=== PATIENT | male | born 1985 | race Two or more races ===

== ENCOUNTER 2019-07-25 09:11 | Emergency (ER) | payer SELFPAY ==
[2019-07-25] MEDS ORDERED: Sodium Chloride 0.9% 10 ML Syringe FLUSH PRN ×2 (10:44→10:48)
--- NOTE | 2019-07-25 10:45 | EDM.PDOC ---
ED HPI GENERAL MEDICAL PROBLEM - General Chief Complaint: Back Pain or Injury Stated Complaint: BACK/LEFT SIDE PAIN Time Seen by Provider: 07/25/19 09:32 Source of Information: Reports: Patient History Limitations: Reports: No Limitations - History of Present Illness INITIAL COMMENTS - FREE TEXT/NARRATIVE: The patient presents with left upper lateral back pain This has been going on for over a week. He had a cough, fever, chills and congestion for over a week. He did see Dr Parra in the clinic and she did x-rays and said he had pleurisy. He has no fever now. He has no shortness of breath. He has no pain when laying down. He hurts more when taking a deep breath or cough. Onset: Gradual Duration: Week(s): Location: Reports: Back (left upper) Quality: Reports: Sharp Severity: Moderate Improves with: Reports: None Worsens with: Reports: None Associated Symptoms: Reports: Cough, Fever/Chills. Denies: Chest Pain, Headaches, Nausea/Vomiting, Shortness of Breath Treatments SAND BLASTER: Reports: NSAIDS Left Upper Posterior Back Pain Score (Numeric/FACES): 8 - Related Data Allergies Allergy/AdvReac Type Severity Reaction Status Date / Time No Known Allergies Allergy Verified 07/25/19 09:48 Home Meds: Home Meds Ibuprofen 800 mg PO Q8HR PRN 07/25/19 [History] predniSONE [Prednisone] 40 mg PO DAILY #10 tablet 07/25/19 [Rx] Past Medical History HEENT History: Reports: Impaired Vision Cardiovascular History: Reports: Heart Murmur - Past Surgical History HEENT Surgical History: Reports: None Cardiovascular Surgical History: Reports: None GI Surgical History: Reports: Appendectomy Social & Family History - Tobacco Use Smoking Status *Q: Never Smoker - Caffeine Use Caffeine Use: Reports: Coffee - Recreational Drug Use Recreational Drug Use: No ED ROS GENERAL - Review of Systems Review Of Systems: See Below Constitutional: Reports: No Symptoms HEENT: Reports: No Symptoms Respiratory: Reports: Cough. Denies: Shortness of Breath Cardiovascular: Reports: No Symptoms Endocrine: Reports: No Symptoms GI/Abdominal: Reports: No Symptoms : Reports: No Symptoms Musculoskeletal: Reports: Back Pain (Left upper) ED EXAM,LOWER BACK PAIN/INJURY - Physical Exam Exam: See Below Exam Limited By: No Limitations General Appearance: Alert, No Apparent Distress Ears: Normal External Exam Nose: Normal Inspection Head: Atraumatic, Normocephalic Neck: Normal Inspection Respiratory/Chest: No Respiratory Distress, Lungs Clear, Normal Breath Sounds Cardiovascular: Regular Rate, Rhythm, No Edema, No Murmur GI/Abdominal: Soft, Non-Tender, No Organomegaly, No Mass Back Exam: Other (no pain upon palpation to the left back but he is uncomfortable standing when I examined him. I could not reproduce the pain with palpation.) Course - Vital Signs Last Recorded V/S: Last Vital Signs Temp 97.2 F 07/25/19 09:28 Pulse 57 L 07/25/19 09:28 Resp 18 07/25/19 09:28 BP 107/73 07/25/19 09:28 Pulse Ox 99 07/25/19 09:28 - Orders/Labs/Meds Orders: Active Orders 24 hr Category Date Time Status Cardiac Monitoring [RC] . DIRECTED Care 07/25/19 09:41 Active Peripheral IV Care [RC] . DIRECTED Care 07/25/19 10:44 Active Chest 2V [CR] Stat Exams 07/25/19 09:41 Taken Sodium Chloride 0.9% [Normal Saline] 100 ml Med 07/25/19 11:00 Active IV ASDIRECTED Sodium Chloride 0.9% [Saline Flush] Med 07/25/19 10:44 Active 10 ml FLUSH ASDIRECTED PRN Sodium Chloride 0.9% [Saline Flush] Med 07/25/19 10:48 Active 10 ml FLUSH ONETIME PRN Peripheral IV Insertion Adult [OM.PC] Routine Oth 07/25/19 10:44 Ordered Medication Orders Sodium Chloride (Normal Saline) 100 mls @ 75 mls/hr IV ASDIRECTED MANUELITO Last Admin: 07/25/19 11:02 Dose: 75 mls/hr Sodium Chloride (Saline Flush) 10 ml FLUSH ASDIRECTED PRN PRN Reason: Keep Vein Open Last Admin: 07/25/19 10:49 Dose: 10 ml Sodium Chloride (Saline Flush) 10 ml FLUSH ONETIME PRN PRN Reason: IV FLUSH Last Admin: 07/25/19 11:02 Dose: 10 ml Labs: Laboratory Tests 07/25/19 07/25/19 07/25/19 Range/Units 09:55 09:55 09:55 WBC 4.98 (4.23-9.07) K/mm3 RBC 5.39 (4.63-6.08) M/mm3 Hgb 15.7 (13.7-17.5) gm/dl Hct 47.2 (40.1-51.0) % MCV 87.6 (79.0-92.2) fl MCH 29.1 (25.7-32.2) pg MCHC 33.3 (32.2-35.5) g/dl RDW Std Deviation 41.0 (35.1-43.9) fL Plt Count 186 (163-337) K/mm3 MPV 10.0 (9.4-12.3) fl Neut % (Auto) 54.1 (34.0-67.9) % Lymph % (Auto) 32.5 (21.8-53.1) % [place] % (Auto) 7.4 (5.3-12.2) % Eos % (Auto) 5.4 (0.8-7.0) Baso % (Auto) 0.4 (0.1-1.2) % Neut # (Auto) 2.69 (1.78-5.38) K/mm3 Lymph # (Auto) 1.62 (1.32-3.57) K/mm3 [place] # (Auto) 0.37 (0.30-0.82) K/mm3 Eos # (Auto) 0.27 (0.04-0.54) K/mm3 Baso # (Auto) 0.02 (0.01-0.08) K/mm3 D-Dimer, Quantitative 1.27 H (0.19-0.50) mg/L Sodium 143 (136-145) mEq/L Potassium 4.5 (3.5-5.1) mEq/L Chloride 105 (98-107) mEq/L Carbon Dioxide 30 (21-32) mEq/L Anion Gap 12.5 (5-15) BUN 11 (7-18) mg/dL Creatinine 1.1 (0.7-1.3) mg/dL Est Cr Clr Drug Dosing TNP Estimated GFR (MDRD) > 60 (>60) mL/min BUN/Creatinine Ratio 10.0 L (14-18) Glucose 90 (74-106) mg/dL Calcium 9.4 (8.5-10.1) mg/dL Total Bilirubin 0.5 (0.2-1.0) mg/dL AST 22 (15-37) U/L ALT 29 (16-63) U/L Alkaline Phosphatase 64 (46-116) U/L Total Protein 8.0 (6.4-8.2) g/dl Albumin 4.1 (3.4-5.0) g/dl Globulin 3.9 gm/dL Albumin/Globulin Ratio 1.1 (1-2) Meds: Medications Generic Name Dose Route Start Last Admin Trade Name Freq PRN Reason Stop Dose Admin Sodium Chloride 100 mls @ 75 mls/hr 07/25/19 11:00 07/25/19 11:02 Normal Saline IV 75 mls/hr ASDIRECTED MANUELITO Administration Sodium Chloride 10 ml 07/25/19 10:44 07/25/19 10:49 Saline Flush FLUSH 10 ml ASDIRECTED PRN Administration Keep Vein Open Sodium Chloride 10 ml 07/25/19 10:48 07/25/19 11:02 Saline Flush FLUSH 10 ml ONETIME PRN Administration IV FLUSH Discontinued Medications Generic Name Dose Route Start Last Admin Trade Name Freq PRN Reason Stop Dose Admin Iopamidol 100 ml 07/25/19 10:48 07/25/19 11:02 [id number] (76%) IVPUSH 07/25/19 10:49 100 ml ONETIME ONE Administration - Re-Assessments/Exams Free Text/Narrative Re-Assessment/Exam: 07/25/19 11:51 I ordered an CXR and labs. His CXR looks good. His CBC and CMP look good. His D-dimer was elevated. I then ordered a CT of his chest but it did not show a PE. I will get him on some steroids for the pleurisy. Departure - Departure Time of Disposition: 11:55 Disposition: Home, Self-Care 01 Condition: Good Clinical Impression: Pleurisy - Discharge Information *PRESCRIPTION DRUG MONITORING PROGRAM REVIEWED*: Not Applicable *COPY OF PRESCRIPTION DRUG MONITORING REPORT IN PATIENT MIRA: Not Applicable Prescriptions: predniSONE [Prednisone] 40 mg PO DAILY #10 tablet Referrals: PCP,None [Primary Care Provider] - Debbi Parra MD [Physician] - 1 Week Forms: ED Department Discharge Additional Instructions: Take the prednisone daily for 5 days. Take tylenol for any pain. Please return if you are worse. Follow up with Dr Parra in 1 week. Sepsis Event Note - Evaluation Sepsis Screening Result: No Definite Risk - Focused Exam Vital Signs: Vital Signs Temp Pulse Resp BP Pulse Ox 07/25/19 09:28 97.2 F 57 L 18 107/73 99 Date Exam was Performed: 07/25/19 Time Exam was Performed: 11:47 - My Orders Last 24 Hours: My Active Orders 07/25/19 09:41 Cardiac Monitoring [RC] . DIRECTED Chest 2V [CR] Stat 07/25/19 10:44 Peripheral IV Care [RC] . DIRECTED Sodium Chloride 0.9% [Saline Flush] 10 ml FLUSH ASDIRECTED PRN Peripheral IV Insertion Adult [OM.PC] Routine 07/25/19 10:48 Sodium Chloride 0.9% [Saline Flush] 10 ml FLUSH ONETIME PRN 07/25/19 11:00 Sodium Chloride 0.9% [Normal Saline] 100 ml IV ASDIRECTED - Assessment/Plan Last 24 Hours: My Active Orders 07/25/19 09:41 Cardiac Monitoring [RC] . DIRECTED Chest 2V [CR] Stat 07/25/19 10:44 Peripheral IV Care [RC] . DIRECTED Sodium Chloride 0.9% [Saline Flush] 10 ml FLUSH ASDIRECTED PRN Peripheral IV Insertion Adult [OM.PC] Routine 07/25/19 10:48 Sodium Chloride 0.9% [Saline Flush] 10 ml FLUSH ONETIME PRN 07/25/19 11:00 Sodium Chloride 0.9% [Normal Saline] 100 ml IV ASDIRECTED
[2019-07-25] MEDS ORDERED: Iopamidol 755 Mg/ML 100 ML Bottle IVPUSH ONE (10:48)
[2019-07-25] MEDS ORDERED: Sodium Chloride 0.9% 100 ML IV SCH (11:00)
--- NOTE | 2019-07-25 11:26 | CT ---
CT chest Technique: Multiple axial sections were obtained from above the lung apices inferiorly through the lung bases. Intravenous contrast was utilized. Study performed as a pulmonary angiogram protocol. Findings: Pulmonary arteries are well-opacified. No filling defects are seen to indicate pulmonary embolism. Mediastinum and hilar regions show no adenopathy. No pericardial thickening is seen. Small portion of the visualized upper abdominal structures shows no discrete abnormality. Lungs are clear. No acute parenchymal changes seen. No pleural effusions are noted. Bone window settings were reviewed which shows minimal degenerative spurring within the mid and upper thoracic spine. No acute osseous finding is appreciated. Impression: 1. No findings of pulmonary embolism. 2. Nothing acute is appreciated on CT study of the chest. Diagnostic code #2 This report was dictated in [place] Standard Time
--- NOTE | 2019-07-26 07:28 | CR ---
Chest: Two views of the chest were obtained. Comparison: No prior chest imaging. Heart size and mediastinum are within normal limits. Lungs are clear with no acute parenchymal change. Bony structures are unremarkable. Impression: 1. Nothing acute is seen on two-view chest x-ray. Diagnostic code #1 This report was dictated in [place] Standard Time
== END 2019-07-25 12:06 | disposition home or self-care (01) ==
LOC: MERGE 09:11 → JD.ED 09:11
DX: R09.1 Pleurisy (principal)
CPT/HCPCS: 36415; 71046; 71275; 80053; 85025; 85379; 99284; J7050; Q9967; 99283